=== PATIENT | male | born 1960 | race Caucasian/White ===

== ENCOUNTER 2017-04-02 20:10 | Emergency (ER) | payer MEDICAID ==
[~2017-04-02] VITALS: Ht 172.7 cm; Wt 71.7 kg
[2017-04-02] MEDS ORDERED: LABETALOL H5 MG/1 M1 ORAL (20:21)
[2017-04-02] MEDS ORDERED: Ketorolac 30mg Inj IV ONE (20:30)
[2017-04-02 20:31] VITALS: BP 114/73
[2017-04-02 20:54] LABS: BASOPHILS % (AUTO) 1.7 % (0.0-2.0); EOSINOPHILS % (AUTO) 3.2 % (0.0-3.0); LYMPHOCYTES % (AUTO) 38.8 % (20.0-45.0); MEAN CORPUSCULAR HEMOGLOBIN 34.9 PG (27.0-31.0); MEAN CORPUSCULAR HGB CONC 37.5 G/DL (32.0-36.0); MEAN CORPUSCULAR VOLUME 93 FL (80-99); MEAN PLATELET VOLUME 6.5 FL (6.5-10.1); MONOCYTES % (AUTO) 8.3 % (1.0-10.0); PLATELET COUNT 188 K/UL (150-450); RED BLOOD COUNT 4.51 M/UL (4.70-6.10); RED CELL DISTRIBUTION WIDTH 11.6 % (11.6-14.8); WHITE BLOOD COUNT 6.2 K/UL (4.8-10.8)
--- NOTE | 2017-04-02 21:08 | Emergency Room Report ---
History of Present Illness General Chief Complaint: General Complaint Source: Patient Present Illness HPI 56YOM walk-in with 1 week right shoulder/neck, upper right back pain Worse with movement Sharp, 8/10 Getting massages at home from partner Doesnt want to take any meds Denies known med problems. CAD risk factors Denies chest pain, SOB, abd pain, nausea/vomiting, fever/chills Drives a taxi Allergies: Coded Allergies: No Known Allergies (Unverified , 04/02/17) Patient History Past Medical History: none Past Surgical History: none Pertinent Family History: none Social History: Denies: smoking, alcohol use, drug use Immunizations: UTD Reviewed Nursing Documentation: PMH: Agreed, PSxH: Agreed Nursing Documentation-PMH Past Medical History: No History, Except For Hx Hypertension: Yes Review of Systems All Other Systems: negative except mentioned in HPI Physical Exam Vital Signs Date Time Temp Pulse Resp B/P (MAP) Pulse Ox O2 Delivery O2 Flow Rate FiO2 04/02/17 20:13 98.2 84 18 11/73 97 Room Air Sp02 EP Interpretation: reviewed, normal General Appearance: normal inspection, well appearing, no apparent distress, alert, GCS 15, non-toxic Head: normocephalic, atraumatic Eyes: bilateral eye PERRL, bilateral eye EOMI ENT: normal ENT inspection, hearing grossly normal, normal voice Neck: normal inspection, full range of motion, supple, no bony tend, tender lateral, other - right C-spine neck paravertbral ttp. Respiratory: normal inspection, lungs clear, normal breath sounds, no respiratory distress, no retraction, no wheezing Cardiovascular #1: regular rate, rhythm, no edema Gastrointestinal: normal inspection, normal bowel sounds, non tender, soft, no guarding, no hernia Genitourinary: no CVA tenderness Musculoskeletal: normal inspection, back normal, normal range of motion, Jaelyn' s Sign negative, other - ROM intact to shoulder. Mild focal deltoid ttp Neurologic: normal inspection, alert, oriented x3, responsive, preprint analyst III-XII nml as tested, motor strength/tone normal, speech normal Psychiatric: normal inspection, judgement/insight normal, mood/affect normal Skin: normal inspection, normal color, no rash Medical Decision Making Diagnostic Impression: Primary Impression: Shoulder pain, right Qualified Codes: M25.511 - Pain in right shoulder Additional Impressions: Musculoskeletal strain HARPAL (acute kidney injury) Dehydration ER Course VSS. Afebrile. No leuks. H&H stable ECG is sinus first degree block. Troponin 0. Analgesia, muscle relaxer given with improvement Likely MSK pain vs carpal tunnel vs cervical strain Mild HARPAL on labs Was rehydrated Patient states drinks a lot of black tea, not enough water Partner to help patient establish care with Dr Aguilar Copy of Labs given to patient DC home EKG Diagnostic Results Rate: normal, other - 1st degree block Rhythm: NSR ST Segments: no acute changes Rhythm Strip Diag. Results EP Interpretation: yes Rate: 65 Rhythm: NSR, no PVC's, no ectopy Chest X-Ray Diagnostic Results Chest X-Ray Diagnostic Results : Chest X-Ray Ordered: Yes # of Views/Limited/Complete: 1 View Indication: Chest Pain EP Interpretation: Yes Interpretation: no consolidation, no effusion, no pneumothorax, no acute cardiopulmonary disease Impression: No acute disease Interpreting ER Provider: Dr Baljeet Johnson MD Last Vital Signs Date Time Temp Pulse Resp B/P (MAP) Pulse Ox O2 Delivery O2 Flow Rate FiO2 04/02/17 20:31 98.2 84 18 114/73 97 Room Air Status: improved Disposition: HOME, SELF-CARE Scripts Methocarbamol* (ROBAXIN-750*) 750 Mg Tablet 750 MG PO TID for 7 Days, #30 TAB 0 Refills Prov: BALJEET JOHNSON M.D. 04/02/17 BALJEET JOHNSON M.D. Apr 02, 2017 21:08
[2017-04-02 21:11] LABS: TROPONIN I < 0.30 ng/mL (<=0.30)
[2017-04-02 21:12] LABS: ALBUMIN/GLOBULIN RATIO 1.5 (1.0-2.7); CALCIUM 8.9 mg/dL (8.6-10.2); CREATININE 1.3 mg/dL (0.7-1.2); GLOMERULAR FILTRATION RATE 57.1 mL/min (>60); POTASSIUM 4.1 mEQ/L (3.4-4.9)
[2017-04-02 21:15] VITALS: BP 133/87
[2017-04-02 21:22] LABS: CKMB 1.7 ng/mL (< 6.7)
[2017-04-02] MEDS ORDERED: ROBAXIN-750750 MG PO (21:23)
[2017-04-02 21:53] VITALS: BP 121/76
[2017-04-02 22:04] VITALS: BP 121/76
--- NOTE | 2017-04-03 09:58 | Diagnostic Imaging Report ---
Indication: Dyspnea Comparison: None A single view chest radiograph was obtained. Findings: Cardiomediastinal appearance is within normal limits for age. Pulmonary vascularity is appropriate. The diaphragmatic contour is smooth and costophrenic angles are sharp. No pleural effusions are identified. The bones are unremarkable. Impression: No acute findings
--- NOTE | 2017-04-04 12:39 | Cardiology Report ---
APPROVED REPORT EKG Measurement Heart [id number] Sinus bradycardia with 1st degree AV block Incomplete right bundle branch block Borderline ECG
== END 2017-04-02 22:04 | disposition home or self-care (01) ==
LOC: EMR 20:50
DX: S46.911A Strain of unspecified muscle, fascia and tendon at shoulder and upper arm level, right arm, initial encounter (principal); S29.012A Strain of muscle and tendon of back wall of thorax, initial encounter; S16.1XXA Strain of muscle, fascia and tendon at neck level, initial encounter; X58.XXXA Exposure to other specified factors, initial encounter; Y93.9 Activity, unspecified; Y99.9 Unspecified external cause status; I10 Essential (primary) hypertension; N17.9 Acute kidney failure, unspecified; E86.0 Dehydration
CPT/HCPCS: 36415; 71010; 80053; 82550; 82553; 84484; 85025; 93005; 96374; 99284; J1885